=== PATIENT | male | born 1955 | race Caucasian/White ===

== ENCOUNTER 2025-07-24 14:40 | Inpatient (IN) | payer BC, MEDICARE ==
[2025-07-24 15:41] LABS: Bacteria/HPF None Seen HPF (None Seen); CAUTI Indications for Culture Alt mental st,lethar; Glucose, Urine (Dipstick) Normal (Negative); Leukocyte Negative Leu/uL (Negative); Protein, Urine (Dipstick) Negative (Neg-Trace); RBC/HPF None Seen HPF (0-3); Specific Gravity, Urine 1.024 (1.002-1.036); WBC/HPF 0-3 HPF (0-3)
[2025-07-24 15:44] LABS: Cocaine Metabolite Screen Negative (Negative); THC/Cannabinoid Screen Negative (Negative); Tricyclic Screen Negative (Negative)
[2025-07-24 15:47] LABS: #Basophils 0.12 10x3/uL (0.0-0.2); #Eosinophils 0.33 10x3/uL (0.0-0.7); #Monocytes 1.24 10x3/uL (0.11-0.59); #Neutrophils 6.57 10x3/uL (1.40-6.50); %Basophils 1.2 % (0.0-1.0); %Eosinophils 3.3 % (0.0-10.0); %Lymphocytes 16.1 % (21.0-51.0); %Monocytes 12.4 % (0.0-10.0); %Neutrophils 66.0 % (42.0-75.0); Hematocrit 31.1 % (42.0-52.0); Hemoglobin 10.7 g/dL (14.0-18.0); Mean Corpuscular Hemoglobin 35.5 pg (27.0-31.0); Mean Corpuscular Volume 103.3 fL (78.0-98.0); Platelet Count 144 10x3/uL (130-400); Red Blood Cell (RBC) Count 3.01 mill/uL (4.70-6.10); White Blood Cell (WBC) Count 9.96 10x3/uL (4.8-10.8)
[2025-07-24 15:52] LABS: Urine Culture Reflex No No
[2025-07-24 16:10] LABS: ALT (SGPT) 21 U/L (Less than 45); AST (SGOT) 61 U/L (11-34); Acetaminophen Less than 10 mcg/mL (Less than 10); Albumin 2.2 g/dL (3.1-4.5); Alkaline Phosphatase 134 U/L (40-110); Anion Gap 18 mmol/L (10-20); BUN (Urea Nitrogen) 14 mg/dL (8.4-25.7); Bilirubin, Total 8.1 mg/dL (0.3-1.2); Calc. Creatinine Clearance 0 mL/min (70-130); Calcium 8.2 mg/dL (7.8-10.44); Carbon Dioxide 16 mmol/L (23-31); Chloride 110 mmol/L (98-107); Globulin 4.3 g/dL (2.4-3.5); Glucose 127 mg/dL (83-110); Potassium 3.1 mmol/L (3.5-5.1); Salicylate Less than 8.0 mg/dL (Less than 8.0); Sodium 141 mmol/L (136-145)
[2025-07-24 16:59] LABS: Magnesium 1.8 mg/dL (1.6-2.6)
[2025-07-24] MEDS ORDERED: Magnesium 2 GM/50 ML BAG (IN WATER) ONE (17:10)
[2025-07-24 17:24] LABS: Hep A IgM AB NONREACTIVE (NonReactive); Hep A IgM S/CO 0.43 S/CO (0-0.79); Hep B Core IgM Index 0.13 S/CO (0-0.79); Hep B Surf Ag NONREACTIVE S/CO (NonReactive); Hep C IgG Ab NONREACTIVE S/CO (NonReactive); Hep C Index 0.25 S/CO (0-0.79)
[2025-07-24 19:44] LABS: Actual Bicarbonate (HCO3v) 23.9 mEq/L (22-28); Analyzer IN Cardio ER; Base Excess 1.8 mEq/L (-2.0 to +3.0); Calcium, Ionized (venous) 1.04 mmol/L (1.16-1.32); Chloride (VBG) 113 mmol/L (98-106); Hematocrit-VBG 33 % (42.0-52.0); Hemoglobin (Hb) 11.3 g/dL (12.6-17.4); Potassium (VBG) 3.98 mmol/L (3.70-5.30); Sodium 142 mmol/L (133-146)
[2025-07-24] MEDS ORDERED: Lactulose 20 GM (30 mL) UDCUP ONE (19:50)
[2025-07-24] MEDS ORDERED: Ondansetron PF 4 MG/2 ML Vial IVP PRN (19:51)
[2025-07-24] MEDS ORDERED: Potassium Chloride 40 MEQ in Premix 1 BAG IVPB SCH (20:00)
[2025-07-24] MEDS ORDERED: Lactulose 20 GM (30 mL) UDCUP PR SCH ×2 (20:00→21:00)
[2025-07-24 20:59] VITALS: BMI 29.1
[2025-07-24] MEDS ORDERED: Electrolyte Replacement Protocol 1 EACH FS SCH (22:15)
[2025-07-24] MEDS: Lactulose 10 GM/15 ML Oral Solution PR SCH (23:11)
[2025-07-24] MEDS: Multivitamins, Adult 10 ML, Folic Acid 1 MG, Thiamine HCl 100 MG, Admixture Fee 1 EACH ... IV SCH (23:12)
[2025-07-24] MEDS: Pantoprazole 40 MG VIAL IVP SCH (23:13)
[2025-07-24] MEDS: Potassium Chloride 20 MEQ in Premix 1 BAG IVPB SCH (23:14)
[2025-07-24] MEDS: Albumin 25% 25 GM (100 mL) BOT IVPB SCH (23:18)
[2025-07-25 04:27] LABS: #Basophils 0.07 10x3/uL (0.0-0.2); #Eosinophils 0.24 10x3/uL (0.0-0.7); #Monocytes 1.25 10x3/uL (0.11-0.59); #Neutrophils 6.11 10x3/uL (1.40-6.50); %Basophils 0.8 % (0.0-1.0); %Eosinophils 2.7 % (0.0-10.0); %Lymphocytes 14.0 % (21.0-51.0); %Monocytes 13.9 % (0.0-10.0); %Neutrophils 67.8 % (42.0-75.0); Hematocrit 28.5 % (42.0-52.0); Hemoglobin 9.4 g/dL (14.0-18.0); Mean Corpuscular Hemoglobin 35.1 pg (27.0-31.0); Mean Corpuscular Volume 106.3 fL (78.0-98.0); Platelet Count 135 10x3/uL (130-400); Red Blood Cell (RBC) Count 2.68 mill/uL (4.70-6.10); White Blood Cell (WBC) Count 9.00 10x3/uL (4.8-10.8)
[2025-07-25 04:36] LABS: INR-International Normal Ratio 2.4; Prothrombin Time 26.4 sec (12.0-14.7)
[2025-07-25 04:37] LABS: PTT 50.0 sec (22.9-36.1)
[2025-07-25 04:53] LABS: ALT (SGPT) 21 U/L (Less than 45); AST (SGOT) 62 U/L (11-34); Albumin 2.5 g/dL (3.1-4.5); Alkaline Phosphatase 112 U/L (40-110); Anion Gap 10 mmol/L (10-20); BUN (Urea Nitrogen) 13 mg/dL (8.4-25.7); Bilirubin, Total 8.1 mg/dL (0.3-1.2); Calc. Creatinine Clearance 160 mL/min (70-130); Calcium 7.9 mg/dL (7.8-10.44); Carbon Dioxide 20 mmol/L (23-31); Chloride 115 mmol/L (98-107); Globulin 3.6 g/dL (2.4-3.5); Glucose 123 mg/dL (83-110); Magnesium 1.9 mg/dL (1.6-2.6); Potassium 3.4 mmol/L (3.5-5.1); Sodium 142 mmol/L (136-145)
[2025-07-25] MEDS: Multivitamins, Adult 10 ML, Folic Acid 1 MG, Thiamine HCl 100 MG, Admixture Fee 1 EACH ... IV SCH (05:25)
[2025-07-25] MEDS ORDERED: Enoxaparin 40 MG (0.4 mL) SYRINGE SC SCH (09:00)
[2025-07-25] MEDS: Potassium Chloride 20 MEQ in Premix 1 BAG IVPB SCH (09:16)
[2025-07-25] MEDS: Magnesium 2 GM/50 ML(in water) 2 GM in Premix 1 BAG IVPB SCH (09:16)
[2025-07-25] MEDS: Pantoprazole 40 MG VIAL IVP SCH (09:17)
[2025-07-25] MEDS: prednisoLONE 10 MG ODT TAB PO SCH (13:21)
[2025-07-25 13:57] VITALS: BMI 29.1
[2025-07-25] MEDS: Lactulose 20 GM (30 mL) UDCUP PO SCH (19:58)
[2025-07-26 04:34] LABS: #Basophils 0.04 10x3/uL (0.0-0.2); #Eosinophils 0.03 10x3/uL (0.0-0.7); #Monocytes 1.32 10x3/uL (0.11-0.59); #Neutrophils 7.06 10x3/uL (1.40-6.50); %Basophils 0.4 % (0.0-1.0); %Eosinophils 0.3 % (0.0-10.0); %Lymphocytes 11.9 % (21.0-51.0); %Monocytes 13.6 % (0.0-10.0); %Neutrophils 72.6 % (42.0-75.0); Hematocrit 31.5 % (42.0-52.0); Hemoglobin 10.1 g/dL (14.0-18.0); Mean Corpuscular Hemoglobin 34.6 pg (27.0-31.0); Mean Corpuscular Volume 107.9 fL (78.0-98.0); Platelet Count 140 10x3/uL (130-400); Red Blood Cell (RBC) Count 2.92 mill/uL (4.70-6.10); White Blood Cell (WBC) Count 9.73 10x3/uL (4.8-10.8)
[2025-07-26 04:47] LABS: INR-International Normal Ratio 2.2; Prothrombin Time 24.2 sec (12.0-14.7)
[2025-07-26 04:59] LABS: ALT (SGPT) 29 U/L (Less than 45); AST (SGOT) 90 U/L (11-34); Albumin 2.5 g/dL (3.1-4.5); Alkaline Phosphatase 125 U/L (40-110); Anion Gap 11 mmol/L (10-20); BUN (Urea Nitrogen) 11 mg/dL (8.4-25.7); Bilirubin, Total 9.6 mg/dL (0.3-1.2); Calc. Creatinine Clearance 138 mL/min (70-130); Calcium 8.2 mg/dL (7.8-10.44); Carbon Dioxide 23 mmol/L (23-31); Chloride 111 mmol/L (98-107); Globulin 3.9 g/dL (2.4-3.5); Glucose 100 mg/dL (83-110); Iron 45 ug/dL (65-175); Iron Binding Capacity, Total 159 mcg/dL (261-462); Magnesium 2.0 mg/dL (1.6-2.6); Potassium 3.7 mmol/L (3.5-5.1); Sodium 141 mmol/L (136-145)
[2025-07-26] MEDS: Magnesium 2 GM/50 ML(in water) 2 GM in Premix 1 BAG IVPB SCH (08:35)
[2025-07-26] MEDS: Pantoprazole 40 MG DR.TAB PO SCH (08:38)
[2025-07-26] MEDS: Folic Acid 1 MG TAB PO SCH (08:38)
[2025-07-27 05:08] LABS: #Basophils 0.04 10x3/uL (0.0-0.2); #Eosinophils 0.06 10x3/uL (0.0-0.7); #Monocytes 1.92 10x3/uL (0.11-0.59); #Neutrophils 10.19 10x3/uL (1.40-6.50); %Basophils 0.3 % (0.0-1.0); %Eosinophils 0.4 % (0.0-10.0); %Lymphocytes 10.6 % (21.0-51.0); %Monocytes 13.9 % (0.0-10.0); %Neutrophils 74.0 % (42.0-75.0); Hematocrit 31.4 % (42.0-52.0); Hemoglobin 10.1 g/dL (14.0-18.0); Mean Corpuscular Hemoglobin 34.5 pg (27.0-31.0); Mean Corpuscular Volume 107.2 fL (78.0-98.0); Platelet Count 176 10x3/uL (130-400); Red Blood Cell (RBC) Count 2.93 mill/uL (4.70-6.10); White Blood Cell (WBC) Count 13.78 10x3/uL (4.8-10.8)
[2025-07-27 05:19] LABS: INR-International Normal Ratio 1.9; Prothrombin Time 22.1 sec (12.0-14.7)
[2025-07-27 05:21] LABS: ALT (SGPT) 37 U/L (Less than 45); AST (SGOT) 86 U/L (11-34); Albumin 2.4 g/dL (3.1-4.5); Alkaline Phosphatase 126 U/L (40-110); Anion Gap 12 mmol/L (10-20); BUN (Urea Nitrogen) 15 mg/dL (8.4-25.7); Bilirubin, Total 9.4 mg/dL (0.3-1.2); Calc. Creatinine Clearance 152 mL/min (70-130); Calcium 8.2 mg/dL (7.8-10.44); Carbon Dioxide 19 mmol/L (23-31); Chloride 113 mmol/L (98-107); Globulin 4.0 g/dL (2.4-3.5); Glucose 101 mg/dL (83-110); Magnesium 1.9 mg/dL (1.6-2.6); Potassium 3.4 mmol/L (3.5-5.1); Sodium 141 mmol/L (136-145)
[2025-07-27] MEDS: Potassium Bicarbonate/Cit Ac 20 MEQ TAB PO SCH (08:32)
[2025-07-27] MEDS: Magnesium 2 GM/50 ML(in water) 2 GM in Premix 1 BAG IVPB SCH (08:32)
[2025-07-27] MEDS ORDERED: Albuterol 2.5 MG (3 mL) NEB NEB PRN ×2 (08:43)
[2025-07-27] MEDS: cefTRIAXone\\ROCEPHIN 1 GM in Sodium Chloride 0.9% 100 ML IVPB SCH (09:51)
[2025-07-27] MEDS: Furosemide 20 MG (2 mL) VIAL SLOW IVP SCH (09:51)
[2025-07-27] MEDS: Benzonatate 100 MG CAP PO SCH (15:08)
[2025-07-28 04:14] LABS: #Basophils Less than 0.03 10x3/uL (0.0-0.2); #Eosinophils Less than 0.03 10x3/uL (0.0-0.7); #Monocytes 1.70 10x3/uL (0.11-0.59); #Neutrophils 10.08 10x3/uL (1.40-6.50); %Basophils 0.2 % (0.0-1.0); %Eosinophils 0.1 % (0.0-10.0); %Lymphocytes 9.0 % (21.0-51.0); %Monocytes 13.0 % (0.0-10.0); %Neutrophils 77.0 % (42.0-75.0); Hematocrit 31.0 % (42.0-52.0); Hemoglobin 10.2 g/dL (14.0-18.0); Mean Corpuscular Hemoglobin 35.1 pg (27.0-31.0); Mean Corpuscular Volume 106.5 fL (78.0-98.0); Platelet Count 143 10x3/uL (130-400); Red Blood Cell (RBC) Count 2.91 mill/uL (4.70-6.10); White Blood Cell (WBC) Count 13.08 10x3/uL (4.8-10.8)
[2025-07-28 04:25] LABS: INR-International Normal Ratio 2.0; Prothrombin Time 22.4 sec (12.0-14.7)
[2025-07-28 04:42] LABS: ALT (SGPT) 39 U/L (Less than 45); AST (SGOT) 82 U/L (11-34); Albumin 2.3 g/dL (3.1-4.5); Alkaline Phosphatase 130 U/L (40-110); Anion Gap 10 mmol/L (10-20); BUN (Urea Nitrogen) 19 mg/dL (8.4-25.7); Bilirubin, Total 9.1 mg/dL (0.3-1.2); Calc. Creatinine Clearance 140 mL/min (70-130); Calcium 8.3 mg/dL (7.8-10.44); Carbon Dioxide 23 mmol/L (23-31); Chloride 111 mmol/L (98-107); Globulin 4.0 g/dL (2.4-3.5); Glucose 102 mg/dL (83-110); Potassium 3.2 mmol/L (3.5-5.1); Sodium 141 mmol/L (136-145)
[2025-07-28] MEDS: cefTRIAXone (ROCEPHIN) 1 GM VIAL ONE (09:14)
[2025-07-28] MEDS: Furosemide 40 MG (4 mL) VIAL SLOW IVP SCH ×2 (10:20→21:20)
[2025-07-28] MEDS ORDERED: hydrALAZINE 20 MG/ML VIAL SLOW IVP PRN (10:51)
[2025-07-28] MEDS: Magnesium Oxide 400 MG TAB PO SCH (13:51)
[2025-07-28] MEDS: Potassium Chloride 20 MEQ in Premix 1 BAG IVPB SCH (16:07)
[2025-07-28] MEDS: Lactulose 20 GM (30 mL) UDCUP PO SCH (16:08)
[2025-07-28] MEDS: Rifaximin 550 MG TAB PO SCH (21:20)
[2025-07-29 04:36] LABS: #Basophils Less than 0.03 10x3/uL (0.0-0.2); #Eosinophils Less than 0.03 10x3/uL (0.0-0.7); #Monocytes 1.18 10x3/uL (0.11-0.59); #Neutrophils 10.32 10x3/uL (1.40-6.50); %Basophils 0.1 % (0.0-1.0); %Eosinophils 0.0 % (0.0-10.0); %Lymphocytes 6.7 % (21.0-51.0); %Monocytes 9.5 % (0.0-10.0); %Neutrophils 82.9 % (42.0-75.0); Hematocrit 30.6 % (42.0-52.0); Hemoglobin 9.9 g/dL (14.0-18.0); Mean Corpuscular Hemoglobin 34.7 pg (27.0-31.0); Mean Corpuscular Volume 107.4 fL (78.0-98.0); Platelet Count 134 10x3/uL (130-400); Red Blood Cell (RBC) Count 2.85 mill/uL (4.70-6.10); White Blood Cell (WBC) Count 12.44 10x3/uL (4.8-10.8)
[2025-07-29 04:56] LABS: ALT (SGPT) 38 U/L (Less than 45); AST (SGOT) 69 U/L (11-34); Albumin 2.0 g/dL (3.1-4.5); Alkaline Phosphatase 118 U/L (40-110); Anion Gap 11 mmol/L (10-20); BUN (Urea Nitrogen) 19 mg/dL (8.4-25.7); Bilirubin, Total 7.1 mg/dL (0.3-1.2); Calc. Creatinine Clearance 140 mL/min (70-130); Calcium 8.3 mg/dL (7.8-10.44); Carbon Dioxide 26 mmol/L (23-31); Cardiac Risk 10.0 (Less than 4.5); Chloride 109 mmol/L (98-107); Cholesterol 150 mg/dl (< 200 Desired); Globulin 4.0 g/dL (2.4-3.5); Glucose 115 mg/dL (83-110); HDL Cholesterol 15 mg/dL (>60 Neg Risk); LDL Cholesterol, Calculated 117 mg/dL; Magnesium 1.7 mg/dL (1.6-2.6); Potassium 3.3 mmol/L (3.5-5.1); Sodium 143 mmol/L (136-145); Triglycerides 92 mg/dL (Less than 150)
[2025-07-29] MEDS: Magnesium 2 GM/50 ML(in water) 2 GM in Premix 1 BAG IVPB SCH (10:31)
[2025-07-29] MEDS: Magnesium Oxide 400 MG TAB PO SCH (12:13)
[2025-07-30 03:59] LABS: #Basophils Less than 0.03 10x3/uL (0.0-0.2); #Eosinophils Less than 0.03 10x3/uL (0.0-0.7); #Monocytes 1.15 10x3/uL (0.11-0.59); #Neutrophils 12.33 10x3/uL (1.40-6.50); %Basophils 0.1 % (0.0-1.0); %Eosinophils 0.0 % (0.0-10.0); %Lymphocytes 5.3 % (21.0-51.0); %Monocytes 8.0 % (0.0-10.0); %Neutrophils 85.8 % (42.0-75.0); Hematocrit 32.2 % (42.0-52.0); Hemoglobin 10.6 g/dL (14.0-18.0); Mean Corpuscular Hemoglobin 35.1 pg (27.0-31.0); Mean Corpuscular Volume 106.6 fL (78.0-98.0); Platelet Count 158 10x3/uL (130-400); Red Blood Cell (RBC) Count 3.02 mill/uL (4.70-6.10); White Blood Cell (WBC) Count 14.38 10x3/uL (4.8-10.8)
[2025-07-30 04:12] LABS: Anion Gap 10 mmol/L (10-20); BUN (Urea Nitrogen) 25 mg/dL (8.4-25.7); Calc. Creatinine Clearance 135 mL/min (70-130); Calcium 8.6 mg/dL (7.8-10.44); Carbon Dioxide 28 mmol/L (23-31); Chloride 108 mmol/L (98-107); Glucose 144 mg/dL (83-110); Magnesium 1.8 mg/dL (1.6-2.6); Potassium 3.1 mmol/L (3.5-5.1); Sodium 143 mmol/L (136-145)
[2025-07-30] MEDS: Magnesium 2 GM/50 ML(in water) 2 GM in Premix 1 BAG IVPB SCH (09:25)
[2025-07-30 12:06] LABS: ANA Symphony (Qualitative) Negative (Negative); ANA Symphony (Quantitative) 0.6 Ratio (< 0.7 Negative); EliA Vaculitis New Method **** NEW METHOD ****; Mitochondrial Ab 2.0 U/mL (<4 Negative); dsDNA IgG Antibody 3.7 IU/mL (<10 Negative)
[2025-07-30] MEDS: Potassium Chloride 10 MEQ in Premix 1 BAG IVPB SCH (14:40)
[2025-07-31 04:01] LABS: #Basophils Less than 0.03 10x3/uL (0.0-0.2); #Eosinophils Less than 0.03 10x3/uL (0.0-0.7); #Monocytes 1.59 10x3/uL (0.11-0.59); #Neutrophils 14.28 10x3/uL (1.40-6.50); %Basophils 0.1 % (0.0-1.0); %Eosinophils 0.0 % (0.0-10.0); %Lymphocytes 5.2 % (21.0-51.0); %Monocytes 9.4 % (0.0-10.0); %Neutrophils 84.7 % (42.0-75.0); Hematocrit 33.3 % (42.0-52.0); Hemoglobin 10.9 g/dL (14.0-18.0); Mean Corpuscular Hemoglobin 34.7 pg (27.0-31.0); Mean Corpuscular Volume 106.1 fL (78.0-98.0); Platelet Count 180 10x3/uL (130-400); Red Blood Cell (RBC) Count 3.14 mill/uL (4.70-6.10); White Blood Cell (WBC) Count 16.87 10x3/uL (4.8-10.8)
[2025-07-31 04:22] LABS: Anion Gap 12 mmol/L (10-20); BUN (Urea Nitrogen) 25 mg/dL (8.4-25.7); Calc. Creatinine Clearance 138 mL/min (70-130); Calcium 8.5 mg/dL (7.8-10.44); Carbon Dioxide 29 mmol/L (23-31); Chloride 107 mmol/L (98-107); Glucose 131 mg/dL (83-110); Magnesium 2.0 mg/dL (1.6-2.6); Potassium 3.1 mmol/L (3.5-5.1); Sodium 145 mmol/L (136-145)
[2025-07-31] MEDS: Magnesium 2 GM/50 ML(in water) 2 GM in Premix 1 BAG IVPB SCH (10:09)
[2025-07-31 11:43] LABS: Anion Gap 13 mmol/L (10-20); BUN (Urea Nitrogen) 26 mg/dL (8.4-25.7); Calc. Creatinine Clearance 131 mL/min (70-130); Calcium 8.6 mg/dL (7.8-10.44); Carbon Dioxide 29 mmol/L (23-31); Chloride 107 mmol/L (98-107); Glucose 116 mg/dL (83-110); Potassium 3.4 mmol/L (3.5-5.1); Sodium 146 mmol/L (136-145)
[2025-07-31] MEDS: Lactulose 20 GM (30 mL) UDCUP PO SCH (13:42)
[2025-08-01 03:56] LABS: #Basophils 0.03 10x3/uL (0.0-0.2); #Eosinophils Less than 0.03 10x3/uL (0.0-0.7); #Monocytes 1.70 10x3/uL (0.11-0.59); #Neutrophils 14.02 10x3/uL (1.40-6.50); %Basophils 0.2 % (0.0-1.0); %Eosinophils 0.0 % (0.0-10.0); %Lymphocytes 5.1 % (21.0-51.0); %Monocytes 10.1 % (0.0-10.0); %Neutrophils 83.5 % (42.0-75.0); Hematocrit 34.5 % (42.0-52.0); Hemoglobin 11.3 g/dL (14.0-18.0); Mean Corpuscular Hemoglobin 35.2 pg (27.0-31.0); Mean Corpuscular Volume 107.5 fL (78.0-98.0); Platelet Count 173 10x3/uL (130-400); Red Blood Cell (RBC) Count 3.21 mill/uL (4.70-6.10); White Blood Cell (WBC) Count 16.79 10x3/uL (4.8-10.8)
[2025-08-01 04:45] LABS: Anion Gap 15 mmol/L (10-20); Chloride 107 mmol/L (98-107); Potassium 3.5 mmol/L (3.5-5.1); Sodium 145 mmol/L (136-145)
[2025-08-01 06:09] LABS: BUN (Urea Nitrogen) 29 mg/dL (8.4-25.7); Calc. Creatinine Clearance 140 mL/min (70-130); Calcium 9.0 mg/dL (7.8-10.44); Carbon Dioxide 27 mmol/L (23-31); Glucose 139 mg/dL (83-110)
[2025-08-01] MEDS: predniSONE 20 MG TAB PO SCH (09:49)
[2025-08-01 11:28] LABS: INR-International Normal Ratio 1.6; Prothrombin Time 19.2 sec (12.0-14.7)
[2025-08-01 11:29] LABS: ALT (SGPT) 73 U/L (Less than 45); AST (SGOT) 89 U/L (11-34); Albumin 2.3 g/dL (3.1-4.5); Alkaline Phosphatase 177 U/L (40-110); Bilirubin, Direct 3.1 mg/dL (0.1-0.3); Bilirubin, Total 5.6 mg/dL (0.3-1.2)
[2025-08-02 05:00] LABS: Anion Gap 14 mmol/L (10-20); BUN (Urea Nitrogen) 42 mg/dL (8.4-25.7); Calc. Creatinine Clearance 108 mL/min (70-130); Calcium 9.1 mg/dL (7.8-10.44); Carbon Dioxide 26 mmol/L (23-31); Chloride 105 mmol/L (98-107); Glucose 131 mg/dL (83-110); Potassium 4.0 mmol/L (3.5-5.1); Sodium 141 mmol/L (136-145)
[2025-08-02 05:45] LABS: #Basophils 0.03 10x3/uL (0.0-0.2); #Eosinophils Less than 0.03 10x3/uL (0.0-0.7); #Monocytes 1.69 10x3/uL (0.11-0.59); #Neutrophils 11.30 10x3/uL (1.40-6.50); %Basophils 0.2 % (0.0-1.0); %Eosinophils 0.1 % (0.0-10.0); %Lymphocytes 6.8 % (21.0-51.0); %Monocytes 11.8 % (0.0-10.0); %Neutrophils 79.1 % (42.0-75.0); Hematocrit 33.6 % (42.0-52.0); Hemoglobin 10.8 g/dL (14.0-18.0); Mean Corpuscular Hemoglobin 34.4 pg (27.0-31.0); Mean Corpuscular Volume 107.0 fL (78.0-98.0); Platelet Count 144 10x3/uL (130-400); Red Blood Cell (RBC) Count 3.14 mill/uL (4.70-6.10); White Blood Cell (WBC) Count 14.28 10x3/uL (4.8-10.8)
[2025-08-03 04:25] LABS: #Basophils 0.06 10x3/uL (0.0-0.2); #Eosinophils 0.09 10x3/uL (0.0-0.7); #Monocytes 1.73 10x3/uL (0.11-0.59); #Neutrophils 11.28 10x3/uL (1.40-6.50); %Basophils 0.4 % (0.0-1.0); %Eosinophils 0.6 % (0.0-10.0); %Lymphocytes 7.5 % (21.0-51.0); %Monocytes 11.8 % (0.0-10.0); %Neutrophils 77.4 % (42.0-75.0); Hematocrit 34.0 % (42.0-52.0); Hemoglobin 11.0 g/dL (14.0-18.0); Mean Corpuscular Hemoglobin 34.7 pg (27.0-31.0); Mean Corpuscular Volume 107.3 fL (78.0-98.0); Platelet Count 128 10x3/uL (130-400); Red Blood Cell (RBC) Count 3.17 mill/uL (4.70-6.10); White Blood Cell (WBC) Count 14.60 10x3/uL (4.8-10.8)
[2025-08-03 06:38] LABS: Chloride 103 mmol/L (98-107); Potassium 3.9 mmol/L (3.5-5.1); Sodium 139 mmol/L (136-145)
[2025-08-03 06:39] LABS: Calcium 9.1 mg/dL (7.8-10.44)
[2025-08-03 06:40] LABS: Glucose 133 mg/dL (83-110)
[2025-08-03 06:41] LABS: Anion Gap 15 mmol/L (10-20); Carbon Dioxide 25 mmol/L (23-31)
[2025-08-03 06:44] LABS: BUN (Urea Nitrogen) 54 mg/dL (8.4-25.7)
[2025-08-03 06:45] LABS: Calc. Creatinine Clearance 70 mL/min (70-130)
[2025-08-03] MEDS: Lactulose 20 GM (30 mL) UDCUP PO SCH (10:31)
[2025-08-04] MEDS ORDERED: Iopamidol 370 76% 100 ML VIAL ONE (14:47)
[2025-08-04] MEDS ORDERED: Bisacodyl 10 MG SUPP PR PRN (14:58)
[2025-08-05 03:49] LABS: #Basophils 0.05 10x3/uL (0.0-0.2); #Eosinophils 0.11 10x3/uL (0.0-0.7); #Monocytes 1.90 10x3/uL (0.11-0.59); #Neutrophils 11.56 10x3/uL (1.40-6.50); %Basophils 0.3 % (0.0-1.0); %Eosinophils 0.7 % (0.0-10.0); %Lymphocytes 6.7 % (21.0-51.0); %Monocytes 12.7 % (0.0-10.0); %Neutrophils 77.1 % (42.0-75.0); Hematocrit 32.4 % (42.0-52.0); Hemoglobin 10.8 g/dL (14.0-18.0); Mean Corpuscular Hemoglobin 35.1 pg (27.0-31.0); Mean Corpuscular Volume 105.2 fL (78.0-98.0); Platelet Count 132 10x3/uL (130-400); Red Blood Cell (RBC) Count 3.08 mill/uL (4.70-6.10); White Blood Cell (WBC) Count 14.99 10x3/uL (4.8-10.8)
[2025-08-05 04:06] LABS: ALT (SGPT) 62 U/L (Less than 45); AST (SGOT) 67 U/L (11-34); Albumin 1.9 g/dL (3.1-4.5); Alkaline Phosphatase 153 U/L (40-110); Anion Gap 9 mmol/L (10-20); BUN (Urea Nitrogen) 63 mg/dL (8.4-25.7); Bilirubin, Total 4.0 mg/dL (0.3-1.2); Calc. Creatinine Clearance 64 mL/min (70-130); Calcium 9.2 mg/dL (7.8-10.44); Carbon Dioxide 33 mmol/L (23-31); Chloride 97 mmol/L (98-107); Globulin 3.8 g/dL (2.4-3.5); Glucose 117 mg/dL (83-110); Potassium 4.1 mmol/L (3.5-5.1); Sodium 135 mmol/L (136-145)
[2025-08-05] MEDS: Bisacodyl 10 MG SUPP PR SCH (12:00)
[2025-08-06 05:05] LABS: Anion Gap 16 mmol/L (10-20); BUN (Urea Nitrogen) 50 mg/dL (8.4-25.7); Calc. Creatinine Clearance 108 mL/min (70-130); Calcium 9.1 mg/dL (7.8-10.44); Carbon Dioxide 29 mmol/L (23-31); Chloride 94 mmol/L (98-107); Glucose 112 mg/dL (83-110); Potassium 4.1 mmol/L (3.5-5.1); Sodium 135 mmol/L (136-145)
[2025-08-06 05:14] LABS: #Basophils 0.06 10x3/uL (0.0-0.2); #Eosinophils 0.06 10x3/uL (0.0-0.7); #Monocytes 2.46 10x3/uL (0.11-0.59); #Neutrophils 13.06 10x3/uL (1.40-6.50); %Basophils 0.4 % (0.0-1.0); %Eosinophils 0.4 % (0.0-10.0); %Lymphocytes 5.6 % (21.0-51.0); %Monocytes 14.4 % (0.0-10.0); %Neutrophils 76.5 % (42.0-75.0); Hematocrit 33.8 % (42.0-52.0); Hemoglobin 11.0 g/dL (14.0-18.0); Mean Corpuscular Hemoglobin 34.8 pg (27.0-31.0); Mean Corpuscular Volume 107.0 fL (78.0-98.0); Platelet Count 125 10x3/uL (130-400); Red Blood Cell (RBC) Count 3.16 mill/uL (4.70-6.10); White Blood Cell (WBC) Count 17.06 10x3/uL (4.8-10.8)
[2025-08-06] MEDS: Furosemide 20 MG TAB PO SCH (22:42)
[2025-08-07 16:35] VITALS: BP 105/67; TEMP 97.5
== END 2025-08-07 21:24 | DRG 441 ==
LOC: ERS 14:40 → 2SE 19:29
PROVIDERS: ADMIT Internal Medicine; ATTEND Family Medicine
PROC: 30233J1 Transfusion of Nonautologous Serum Albumin into Peripheral Vein, Percutaneous Approach (ICD-10-PCS; principal; 2025-07-27)
PROC: 3E03329 Introduction of Other Anti-infective into Peripheral Vein, Percutaneous Approach (ICD-10-PCS; 2025-08-04)
PROC: 0T9B70Z Drainage of Bladder with Drainage Device, Via Natural or Artificial Opening (ICD-10-PCS; 2025-08-04)
DX: K76.82 Hepatic encephalopathy (principal); A41.9 Sepsis, unspecified organism; J69.0 Pneumonitis due to inhalation of food and vomit; J96.01 Acute respiratory failure with hypoxia; J18.9 Pneumonia, unspecified organism; G93.41 Metabolic encephalopathy; E87.20 Acidosis, unspecified; D68.8 Other specified coagulation defects; K62.5 Hemorrhage of anus and rectum; E78.5 Hyperlipidemia, unspecified; K58.9 Irritable bowel syndrome, unspecified; K70.11 Alcoholic hepatitis with ascites; E80.6 Other disorders of bilirubin metabolism; I16.0 Hypertensive urgency; K82.8 Other specified diseases of gallbladder; E87.6 Hypokalemia; R13.10 Dysphagia, unspecified; K21.9 Gastro-esophageal reflux disease without esophagitis; D64.9 Anemia, unspecified; K74.60 Unspecified cirrhosis of liver; K59.00 Constipation, unspecified; F10.10 Alcohol abuse, uncomplicated; I45.81 Long QT syndrome; Z85.038 Personal history of other malignant neoplasm of large intestine; Z98.890 Other specified postprocedural states; Z90.49 Acquired absence of other specified parts of digestive tract
CPT/HCPCS: 36415; 36416; 51701; 70450; 70551; 71045; 71250; 74018; 74177; 74181; 74230; 76705; 80048; 80053; 80061; 80074; 80076; 80306; 80307; 81001; 82105; 82140; 82378; 82728; 82805; 83516; 83540; 83550; 83605; 83735; 84443; 84484; 85025; 85610; 85730; 86015; 86038; 86225; 86301; 87040; 87086; 93005; 94640; 94760; 96361; 96365; 96366; 97139; J0696; J1940; J2470; J2919; J3411; J3475; J3480; J7042; J7120; J7512; J7620; J7626; P9047; Q9967; S8037

== ENCOUNTER 2025-10-08 11:40 | Emergency (ER) | payer SELFPAY ==
[2025-10-08 13:50] LABS: #Basophils 0.12 10x3/uL (0.0-0.2); #Eosinophils 0.75 10x3/uL (0.0-0.7); #Monocytes 2.27 10x3/uL (0.11-0.59); #Neutrophils 9.99 10x3/uL (1.40-6.50); %Basophils 0.8 % (0.0-1.0); %Eosinophils 5.0 % (0.0-10.0); %Lymphocytes 12.0 % (21.0-51.0); %Monocytes 15.0 % (0.0-10.0); %Neutrophils 65.9 % (42.0-75.0); Hematocrit 32.0 % (42.0-52.0); Hemoglobin 10.8 g/dL (14.0-18.0); Mean Corpuscular Hemoglobin 32.8 pg (27.0-31.0); Mean Corpuscular Volume 97.3 fL (78.0-98.0); Platelet Count 234 10x3/uL (130-400); Red Blood Cell (RBC) Count 3.29 mill/uL (4.70-6.10); White Blood Cell (WBC) Count 15.13 10x3/uL (4.8-10.8)
[2025-10-08 14:15] LABS: ALT (SGPT) 28 U/L (Less than 45); AST (SGOT) 65 U/L (11-34); Albumin 2.2 g/dL (3.1-4.5); Alkaline Phosphatase 112 U/L (40-110); Anion Gap 17 mmol/L (10-20); BUN (Urea Nitrogen) 17 mg/dL (8.4-25.7); Bilirubin, Total 4.2 mg/dL (0.3-1.2); Calc. Creatinine Clearance 0 mL/min (70-130); Calcium 8.4 mg/dL (7.8-10.44); Carbon Dioxide 23 mmol/L (23-31); Chloride 101 mmol/L (98-107); Globulin 4.5 g/dL (2.4-3.5); Glucose 103 mg/dL (83-110); Potassium 3.9 mmol/L (3.5-5.1); Sodium 137 mmol/L (136-145)
== END 2025-10-08 17:11 | disposition home or self-care (01) ==
LOC: ERS 11:40
DX: R06.00 Dyspnea, unspecified (principal); R18.8 Other ascites; I10 Essential (primary) hypertension
CPT/HCPCS: 71045; 74177; 80053; 83880; 84484; 85025; 93005